=== PATIENT | female | born 1960 ===

== ENCOUNTER → 2018-08-29 | Emergency (ER) | payer OTHER ==
[~2018-08-29] VITALS: Ht 154.9 cm; Wt 49.9 kg
[~2018-08-29] MED LIST: ARTANE2 MG; BENADRYL25 MG; ECONOPRED PLUS10 ML; IBUPROFEN800 MG PO; IMURAN50 MG PO; NEURONTIN250 MG/5 M; PLAQUENIL PO; PREDNISONE5 M1 PO; ZITHROMAX TRI-500 MG PO
== END | disposition home or self-care (01) ==
LOC: ER 11:05
DX: H92.02 Otalgia, left ear (principal)